=== PATIENT | male | born 1960 | race African-American/Black ===

== ENCOUNTER 2019-09-13 22:01 | Emergency (ER) | payer OTHER ==
[~2019-09-13] VITALS: Ht 182.9 cm; Wt 105.2 kg
[2019-09-13 22:05] VITALS: BP 155/95
--- NOTE | 2019-09-13 22:05 | NUR ---
ED Nurse Note: Pt walked into ED for c/o draining abscess onset 9 days ago. Pt states he has had an abscess that has become worse and is draining yellow fluid. Pt is unable to determine what caused abscess and thinks it started when his cat scratched him. Abscess with purulent drainage noted to L upper shoulder. Pt is aaox4, breathing is normal and unlabored. No cough, SOB or fever.
[2019-09-13] MEDS ORDERED: CEPHALEXIN500 M1 ORAL (22:13)
[2019-09-13] MEDS ORDERED: BACTRIM DS TAB1 EAC1 ORAL (22:13)
[2019-09-13] MEDS ORDERED: BACITRACIN ZINC1 GM TOPIC (22:13)
[2019-09-13] MEDS ORDERED: Cephalexin 500mg cap ORAL ONE (22:15)
[2019-09-13] MEDS ORDERED: Bactrim-DS 1 tab ORAL ONE (22:15)
[2019-09-13] MEDS ORDERED: Bacitracin Oint UD TOPIC ONE (22:15)
--- NOTE | 2019-09-13 22:16 | Emergency Room Report ---
History of Present Illness General Chief Complaint: Skin Rash/Abscess Source: Patient Present Illness HPI Patient is a 58-year-old male presents to the ER complaining of possible insect bite to his left scapula. He states that he first noticed it about 9 days ago. He states that he has been cleaning it and that it started draining some pus. He denies any fever or chills. He states that he has had abscesses in the past. He denies any chest pain or shortness of breath. He denies any abdominal pain nausea or vomiting. Patient states that he has not taken any medications for this yet. Allergies: Coded Allergies: No Known Allergies (Unverified , 09/13/19) COVID-19 Screening Contact w/high risk pt: No Recent Travel to affected area: No Experienced COVID-19 symptoms?: No COVID-19 Testing performed FRUIT INSPECTOR: No Patient History Reviewed Nursing Documentation: PMH: Agreed; PSxH: Agreed Nursing Documentation-PMH Past Medical History: No Stated History Review of Systems All Other Systems: negative except mentioned in HPI Physical Exam Vital Signs Date Time Temp Pulse Resp B/P (MAP) Pulse Ox O2 Delivery O2 Flow Rate FiO2 09/13/19 22:05 98.6 85 19 155/95 (115) 99 Room Air Sp02 EP Interpretation: reviewed, normal General Appearance: no apparent distress, alert, GCS 15, non-toxic Head: normocephalic, atraumatic Eyes: bilateral eye normal inspection, bilateral eye PERRL ENT: hearing grossly normal, normal pharynx, no angioedema, normal voice Neck: full range of motion, supple/symm/no masses Respiratory: chest non-tender, lungs clear, normal breath sounds, speaking full sentences Cardiovascular #1: regular rate, rhythm, no edema Gastrointestinal: normal bowel sounds, non tender, soft, non-distended, no guarding, no rebound Rectal: deferred Musculoskeletal: other - Left scapula open abscess draining some purulent drainage with slight fluctuance 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 Local wound care performed. Patient started on Bactrim DS, Keflex as well as topical bacitracin. After discussing risks and benefits of further diagnostics, treatment plans, as well as indications for and risks of admission, the patient is agreeable to being discharged home. I have explained that their evaluation and treatment in the emergency department today is an important step towards them achieving better health but that their evaluation today is not intended to replace further evaluation and treatment by a physician in their local clinic. I have explained that while the current findings suggest no immediate life threatening emergency they will require further evaluation and treatment by a physician of their choice in their area. They understand that it will be necessary for them to review the final reports of their ED visit with their clinic physician. We have reviewed indications for return to the Emergency Department. I have explained that additional time may need to pass and/or additional testing as an outpatient may be necessary before a definitive diagnosis can be made. They tell me they are willing to follow up as instructed within the timeframe I recommend. They appear to understand what we discussed. Additionally they understand that if they are unable to be seen by an outpatient physician they are welcome, and in fact should, return to the Emergency Department for a repeat evaluation. The patient is stable at time of discharge. Last Vital Signs Date Time Temp Pulse Resp B/P (MAP) Pulse Ox O2 Delivery O2 Flow Rate FiO2 09/13/19 22:05 98.6 85 19 155/95 (115) 99 Room Air Disposition: HOME, SELF-CARE Condition: Stable Scripts Bacitracin Zinc Micronized (BACITRACIN ZINC) 1 Gm Powder 1 APPLIC TOPIC BID for 14 Days, GM Prov: Nat Oconnor M.D. 09/13/19 Trimethoprim/Sulfamethoxazole 160/800* (BACTRIM DS TABLET*) 1 Each Tablet 1 TAB ORAL Q12H for 14 Days, #28 TAB 0 Refills Prov: Nat Oconnor M.D. 09/13/19 Cephalexin* (KEFLEX*) 500 Mg Tablet 500 MG ORAL EVERY 6 HOURS for 14 Days, CAP Prov: Nat Oconnor M.D. 09/13/19 Referrals: [facility] Tania Perera [facility] Patient Instructions: Abscess Additional Instructions: The patient was provided with discharge instructions, notified to follow-up with a primary care doctor and or specialist in the next 24-48 hours, and to return to the ED if they have worsening of their symptoms. Please note that this report is being documented using DRAGON technology. This can lead to erroneous entry secondary to incorrect interpretation by the dictating instrument. Nat Oconnor M.D. Sep 13, 2019 22:16
--- NOTE | 2019-09-13 22:20 | NUR ---
ED Nurse Note: Dressing applied to abscess.
[2019-09-13 22:30] VITALS: BP 148/92
--- NOTE | 2019-09-13 22:30 | NUR ---
ER DISCHARGE NOTE: Patient is cleared to be discharged per ERMD, pt is aox4, on room air, with stable vital signs. pt was given dc and prescription instructions, pt was able to verbalize understanding, pt id band removed. pt is able to ambulate with steady gait. pt took all belongings.
== END 2019-09-13 22:30 | disposition home or self-care (01) ==
LOC: EMR 22:24
DX: M86.8X1 Other osteomyelitis, shoulder (principal)
CPT/HCPCS: 99282